=== PATIENT | male | born 1970 | race Two or more races ===

== ENCOUNTER 2024-01-12 09:33 | Inpatient (IN) | payer SELFPAY ==
[~2024-01-12] VITALS: Ht 170.2 cm; Wt 82.0 kg
[2024-01-12 09:56] VITALS: PULSE 60; PULSE 76; RESP 16; O2SAT 94
[2024-01-12 10:38] LABS: Chloride 106 mmol/L (98-107); Potassium 4.5 mmol/L (3.5-5.1); Sodium 138 mmol/L (136-145)
[2024-01-12 10:39] LABS: Anion Gap 5 (5-15); Calcium 9.6 mg/dL (8.7-10.4); Carbon Dioxide 27 mmol/L (20-31)
[2024-01-12 10:44] LABS: BUN/Creatinine Ratio 9.7 (10.0-20.0); Basophils # (auto) 0 10 ^3/uL (0-0.2); Blood Urea Nitrogen 9 mg/dL (9-23); Eosinophils # (auto) 0.1 10 ^3/uL (0-0.8); Glucose 93 mg/dL (74-106); Hematocrit 40.6 % (41.0-53.0); Hemoglobin 13.5 g/dL (13.5-17.5); Lymphocytes # (auto) 0.9 10 ^3/uL (0.4-5.4); Monocytes # (auto) 0.4 10 ^3/uL (0-1.3); Neutrophils # (auto) 1.8 10 ^3/uL (1.6-8.6); White Blood Cell 3.3 10^3/uL (4.4-10.8)
[2024-01-12 10:46] LABS: Basophils % (auto) 1.2 % (0.0-2.0); Lymphocytes % (auto) 28.4 % (10.0-50.0); Mean Corpuscular Hemoglobin 34.5 pg (28.0-32.0); Mean Corpuscular Hgb Conc. 33.3 g/dL (32.0-36.0); Mean Corpuscular Volume 103.4 fL (80.0-100.0); Monocytes % (auto) 12.9 % (0.0-12.0); Neutrophils % (auto) 54.5 % (37.0-80.0); Nucleated Red Blood Cells % 0.1 %; Platelet Count (auto) 237 10^3/uL (140-450); Red Blood Cells 3.93 10^6/uL (4.5-5.90); Red Cell Distribution Width 14.5 % (11.8-14.3)
[2024-01-12] MEDS: levETIRAcetam 500 mg/100ml 100 ML IV ONE (11:34)
[2024-01-12] MEDS: SODIUM CHLORIDE 0.9% 1,000 ML IV ONE (11:35)
[2024-01-12] MEDS ORDERED: hydrALAZINE HCL 20 MG/ML VL IV PRN (13:30)
[2024-01-12] MEDS ORDERED: DOCUSATE SOD 100 MG CAP PO PRN (14:00)
[2024-01-12] MEDS ORDERED: ACETAMINOPHEN 325 MG TAB PO PRN (14:00)
[2024-01-12] MEDS ORDERED: HYDROmorphone HCL 2 MG/ML VL/or syr IV PRN (14:00)
[2024-01-12] MEDS ORDERED: ONDANSETRON HCL 4 MG/2 ML VIAL IV PRN (14:00)
[2024-01-12] MEDS ORDERED: HYDROcodone-ACET 5/325MG TAB PO PRN (14:00)
[2024-01-12] MEDS: SODIUM CHLOR 0.9% PF (SALINE LOCK) 10ML VIAL/SYR IV SCH (14:01)
[2024-01-12 14:17] LABS: Urine Bacteria FEW /hpf (None Seen); Urine Blood Negative /uL (Negative); Urine Clarity Clear (Clear); Urine Color Yellow (Yellow); Urine Hyaline Cast FEW /lpf (0 - 2); Urine Mucus FEW (None Seen); Urine Protein, UAD TRACE (Negative); Urine Specific Gravity 1.029 (1.001-1.035); Urine Urobilinogen 3 mg/dL (Negative); Urine WBC 2 /hpf (0 - 3)
[2024-01-12 19:26] VITALS: PULSE 76; RESP 14; O2SAT 97
[2024-01-12 20:39] LABS: Amphetamine Screen, Urine Neg (NEGATIVE); Barbiturate Scree,Urine Neg (NEGATIVE); Benzodiazephine Screen, Urine Neg (NEGATIVE); Cocaine Screen, Urine Neg (NEGATIVE); Opiate Scree,Urine Neg (NEGATIVE); Phencyclidine Screen, Urine Neg (NEGATIVE)
[2024-01-12 20:40] LABS: Cannabinoid Screen, Urine Neg (NEGATIVE)
[2024-01-12] MEDS ORDERED: levETIRAcetam 500 mg/100ml 100 ML IV SCH (22:00)
[2024-01-12] MEDS: levETIRAcetam 500 MG TAB PO SCH (22:04)
[2024-01-13 08:00] VITALS: PULSE 68; RESP 18; O2SAT 95
[2024-01-13 08:13] VITALS: TEMP 97.7
[2024-01-13] MEDS: ENOXAPARIN SOD 40 MG/0.4 ML SYRINGE SC SCH (10:37)
[2024-01-13] MEDS: LORazepam 2MG/ML-1ML VIAL IV ONE (16:10)
[2024-01-13 19:00] VITALS: PULSE 80; RESP 14; O2SAT 94
[2024-01-13] MEDS: LORazepam 2MG/ML-1ML VIAL IV PRN ×2 (21:44)
[2024-01-14 05:57] LABS: Basophils # (auto) 0 10 ^3/uL (0-0.2); Basophils % (auto) 1.6 % (0.0-2.0); Eosinophils # (auto) 0.1 10 ^3/uL (0-0.8); Eosinophils % (auto) 4.6 % (0.0-7.0); Hematocrit 41.6 % (41.0-53.0); Hemoglobin 13.9 g/dL (13.5-17.5); Lymphocytes # (auto) 1.2 10 ^3/uL (0.4-5.4); Lymphocytes % (auto) 41.2 % (10.0-50.0); Mean Corpuscular Hemoglobin 34.1 pg (28.0-32.0); Mean Corpuscular Hgb Conc. 33.3 g/dL (32.0-36.0); Mean Corpuscular Volume 102.3 fL (80.0-100.0); Monocytes # (auto) 0.3 10 ^3/uL (0-1.3); Monocytes % (auto) 11.6 % (0.0-12.0); Neutrophils # (auto) 1.2 10 ^3/uL (1.6-8.6); Platelet Count (auto) 271 10^3/uL (140-450); Red Blood Cells 4.06 10^6/uL (4.5-5.90); Red Cell Distribution Width 14.1 % (11.8-14.3); White Blood Cell 2.8 10^3/uL (4.4-10.8)
[2024-01-14 06:21] LABS: Alanine Aminotransferase 18 U/L (7-40); Albumin 4.3 g/dL (3.2-4.8); Alkaline Phosphatase 60 U/L (46-116); Anion Gap 4 (5-15); Aspartate Aminotransferase 14 U/L (13-40); BUN/Creatinine Ratio 9.5 (10.0-20.0); Blood Urea Nitrogen 7 mg/dL (9-23); Calcium 9.4 mg/dL (8.7-10.4); Carbon Dioxide 27 mmol/L (20-31); Chloride 108 mmol/L (98-107); Glucose 94 mg/dL (74-106); Potassium 4.1 mmol/L (3.5-5.1); Sodium 139 mmol/L (136-145)
[2024-01-14 06:22] LABS: Bilirubin, Total 0.3 mg/dL (0.2-1.0); Total Protein 7.4 g/dL (5.7-8.2)
[2024-01-14 07:25] VITALS: PULSE 79; RESP 15
[2024-01-14 10:00] VITALS: O2SAT 97
[2024-01-14 11:25] LABS: Folate (Folic Acid) 20.19 ng/mL (>5.38)
[2024-01-14] MEDS ORDERED: KEP500T PO (12:59)
[2024-01-14 14:00] VITALS: BP 103/67; PULSE 76; RESP 13
== END 2024-01-14 14:56 | disposition home or self-care (01) | DRG 101 ==
LOC: EDBD 09:33 → ER 09:33 → TELE 13:52
PROVIDERS: ADMIT Internal Medicine; ATTEND Student in an Organized Health Care Education/Training Program
DX: G40.409 Other generalized epilepsy and epileptic syndromes, not intractable, without status epilepticus (principal); D75.89 Other specified diseases of blood and blood-forming organs; F17.290 Nicotine dependence, other tobacco product, uncomplicated; Z79.899 Other long term (current) drug therapy
CPT/HCPCS: 36415; 70450; 80048; 80053; 80307; 81001; 82607; 82746; 85025; 93005; 99291; G0378

== ENCOUNTER 2024-01-22 01:26 | Inpatient (IN) | payer OTHER ==
[~2024-01-22] VITALS: Ht 182.9 cm; Wt 76.3 kg
[~2024-01-22 01:26] MED LIST: KEP500T PO
[2024-01-22 02:00] VITALS: PULSE 89; RESP 18; O2SAT 100
[2024-01-22] MEDS: levoFLOXacin 500MG 100 ML IV ONE (03:15)
[2024-01-22] MEDS: LORazepam 2MG/ML-1ML VIAL IV ONE (03:15)
[2024-01-22 04:51] LABS: Basophils # (auto) 0 10 ^3/uL (0-0.2); Basophils % (auto) 0.8 % (0.0-2.0); Eosinophils # (auto) 0.1 10 ^3/uL (0-0.8); Lymphocytes # (auto) 1.3 10 ^3/uL (0.4-5.4); Monocytes # (auto) 0.4 10 ^3/uL (0-1.3)
[2024-01-22 04:53] LABS: Eosinophils % (auto) 1.9 % (0.0-7.0); Lymphocytes % (auto) 30.4 % (10.0-50.0); Mean Corpuscular Hemoglobin 34.1 pg (28.0-32.0); Mean Corpuscular Hgb Conc. 33.3 g/dL (32.0-36.0); Mean Corpuscular Volume 102.6 fL (80.0-100.0); Monocytes % (auto) 8.6 % (0.0-12.0); Neutrophils # (auto) 2.5 10 ^3/uL (1.6-8.6); Neutrophils % (auto) 58.3 % (37.0-80.0); Nucleated Red Blood Cells % 0.1 %; Platelet Count (auto) 291 10^3/uL (140-450); Red Blood Cells 3.79 10^6/uL (4.5-5.90); Red Cell Distribution Width 14.4 % (11.8-14.3); White Blood Cell 4.3 10^3/uL (4.4-10.8)
[2024-01-22 05:15] LABS: Alanine Aminotransferase 14 U/L (7-40); Albumin 4.2 g/dL (3.2-4.8); Alkaline Phosphatase 58 U/L (46-116); Anion Gap 5 (5-15); Aspartate Aminotransferase 21 U/L (13-40); BUN/Creatinine Ratio 22.7 (10.0-20.0); Bilirubin, Total 0.3 mg/dL (0.2-1.0); Blood Urea Nitrogen 17 mg/dL (9-23); Calcium 9.2 mg/dL (8.7-10.4); Carbon Dioxide 26 mmol/L (20-31); Chloride 109 mmol/L (98-107); Glucose 94 mg/dL (74-106); Potassium 4.2 mmol/L (3.5-5.1); Sodium 140 mmol/L (136-145); Total Protein 6.8 g/dL (5.7-8.2)
[2024-01-22] MEDS ORDERED: LORazepam 2MG/ML-1ML VIAL IV PRN (07:00)
[2024-01-22] MEDS ORDERED: ONDANSETRON HCL 4 MG/2 ML VIAL IV PRN (07:00)
[2024-01-22] MEDS ORDERED: TEMAZEPAM 15 MG CAP PO PRN (07:00)
[2024-01-22] MEDS ORDERED: ACETAMINOPHEN 325 MG TAB PO PRN (07:00)
[2024-01-22 07:35] VITALS: PULSE 76; RESP 13; O2SAT 93
[2024-01-22 09:35] VITALS: PULSE 74; RESP 16; O2SAT 97
[2024-01-22] MEDS: levETIRAcetam 500 MG TAB PO SCH (10:40)
[2024-01-22 13:34] LABS: Urine Bacteria None Seen /hpf (None Seen)
[2024-01-22 13:56] LABS: Amphetamine Screen, Urine Neg (NEGATIVE); Barbiturate Scree,Urine Neg (NEGATIVE); Benzodiazephine Screen, Urine Neg (NEGATIVE); Cocaine Screen, Urine Neg (NEGATIVE)
[2024-01-22 13:57] LABS: Cannabinoid Screen, Urine Neg (NEGATIVE); Opiate Scree,Urine Neg (NEGATIVE); Phencyclidine Screen, Urine Neg (NEGATIVE)
[2024-01-22 14:01] LABS: Urine Blood Negative /uL (Negative); Urine Clarity Clear (Clear); Urine Color Yellow (Yellow); Urine Mucus FEW (None Seen); Urine Protein, UAD 1+ (Negative); Urine Specific Gravity 1.034 (1.001-1.035); Urine Urobilinogen 3 mg/dL (Negative); Urine WBC 2 /hpf (0 - 3); Urine pH 6.5 (5.0-9.0)
[2024-01-22 20:11] VITALS: PULSE 77; RESP 16; O2SAT 95
[2024-01-22 21:51] VITALS: BP 149/61; PULSE 77; RESP 16; TEMP 97.5; O2SAT 95
[2024-01-22 22:12] VITALS: BP 123/80; PULSE 72; RESP 18; TEMP 97.9; O2SAT 96
[2024-01-23] VITALS (8 sets, daily range): BP systolic 91–117; BP diastolic 62–79; PULSE 61–91; RESP 16–22; TEMP 97.9–98.9; O2SAT 94–99
[2024-01-23] MEDS ORDERED: LEVE500T40 PO (02:17)
[2024-01-23 07:02] LABS: Chloride 108 mmol/L (98-107); Potassium 4.6 mmol/L (3.5-5.1); Sodium 139 mmol/L (136-145)
[2024-01-23 07:03] LABS: Anion Gap 6 (5-15); Calcium 9.3 mg/dL (8.7-10.4); Carbon Dioxide 25 mmol/L (20-31)
[2024-01-23 07:08] LABS: Blood Urea Nitrogen 15 mg/dL (9-23); Glucose 130 mg/dL (74-106)
[2024-01-24 01:00] VITALS: BP 132/79; PULSE 63; RESP 16; TEMP 98.9; O2SAT 97
[2024-01-24 05:00] VITALS: BP 92/61; PULSE 72; RESP 16; TEMP 98.8; O2SAT 97
[2024-01-24 08:00] VITALS: PULSE 59; RESP 22; O2SAT 98
[2024-01-24 08:30] VITALS: BP 138/78; PULSE 59; RESP 18; TEMP 97.9; O2SAT 98
== END 2024-01-24 15:10 | disposition home or self-care (01) | DRG 53 ==
LOC: ER 01:26 → EDBD 01:26 → OVERFLOW 07:03 → EAST 21:50
PROVIDERS: ADMIT Nurse Practitioner; ATTEND Nurse Practitioner Acute Care
DX: G40.909 Epilepsy, unspecified, not intractable, without status epilepticus (principal); G92.8 Other toxic encephalopathy; E78.5 Hyperlipidemia, unspecified; I10 Essential (primary) hypertension; F17.290 Nicotine dependence, other tobacco product, uncomplicated; Z59.00 Homelessness unspecified
CPT/HCPCS: 36415; 70450; 71045; 80048; 80053; 80307; 81001; 82542; 84484; 85025; 96365; 96375; 97110; 97116; 97163; 97530; 99291; G0378; J1956